=== PATIENT | female | born 1960 | race Caucasian/White ===

== ENCOUNTER 2023-06-24 13:20 | Emergency (ER) | payer BC, OTHER ==
[2023-06-24 13:38] VITALS: BP 115/70; PULSE 70; RESP 16; TEMP 97.8; BMI 18.8
== END 2023-06-24 14:53 | disposition home or self-care (01) ==
LOC: FER 13:20
DX: S40.912A Unspecified superficial injury of left shoulder, initial encounter (principal); M25.512 Pain in left shoulder; W01.0XXA Fall on same level from slipping, tripping and stumbling without subsequent striking against object, initial encounter; Y93.02 Activity, running
CPT/HCPCS: 73030-TC-LT-FY; 99283-25